=== PATIENT | female | born 1975 | race African-American/Black ===

== ENCOUNTER 2020-08-09 14:10 | Emergency (ER) | payer MEDICAID, OTHER ==
[~2020-08-09] VITALS: Ht 157.5 cm; Wt 72.6 kg
[2020-08-09 14:11] VITALS: BP 114/78
== END 2020-08-09 16:31 | disposition home or self-care (01) ==
LOC: ER 14:10
DX: G44.209 Tension-type headache, unspecified, not intractable (principal)
CPT/HCPCS: 70450